=== PATIENT | female | born 2005 | race Two or more races ===

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

== ENCOUNTER 2023-04-03 20:54 | Emergency (ER) | payer OTHER ==
[2023-04-03] MEDS ORDERED: Sodium Chloride 0.9% 1,000 ML IV ONE (21:17)
[2023-04-03] MEDS ORDERED: Metoclopramide 10 MG/2 ML SDV IVPUSH ONE (21:18)
[2023-04-03 21:28] LABS: BASOPHILS PERCENT AUTO 0.1 % (0.0-1.0); EOSINOPHILS ABSOLUTE AUTO 0.1 K/mm3 (0.0-0.4); EOSINOPHILS PERCENT AUTO 0.7 % (0.0-6.0); HEMATOCRIT 36.7 % (37.0-47.0); HEMOGLOBIN 12.7 gm/dl (12.0-16.0); IMMATURE GRAN ABSOLUTE AUTO 0.07 K/mm3 (0.00-0.05); IMMATURE GRAN PERCENT AUTO 0.5 % (0.0-0.4); MEAN CORPUSCULAR HEMOGLOBIN 30.3 pg (28.0-32.0); MEAN CORPUSCULAR HGB CONC 34.6 g/dl (32.0-36.0); MEAN CORPUSCULAR VOLUME 87.6 fl (83.0-99.0); MEAN PLATELET VOLUME 8.8 fl (9.4-12.3); MONOCYTES ABSOLUTE AUTO 0.8 K/mm3 (0.0-0.8); MONOCYTES PERCENT AUTO 5.3 % (0.0-8.0); NEUTROPHILS ABSOLUTE AUTO 12.3 K/mm3 (1.8-7.7); NEUTROPHILS PERCENT AUTO 80.4 % (41.0-71.0); PLATELET COUNT,PLT 312 K/mm3 (150-400); RED BLOOD CELL COUNT 4.19 M/mm3 (4.10-5.30); WHITE BLOOD CELL COUNT,WBC 15.26 K/mm3 (3.9-11.3)
[2023-04-03] MEDS ORDERED: Pantoprazole 40 MG Tab.CR ONE (21:51)
[2023-04-03 21:52] LABS: A/G RATIO 0.8 (1-2); ALBUMIN 3.1 g/dl (3.4-5.0); ANION GAP 13.7 (5-15); BILIRUBIN TOTAL 0.2 mg/dL (0.2-1.0); CREATININE 0.6 mg/dL (0.55-1.02); EST CRCL DRUG DOSING (CG) 107.43 mL/min; POTASSIUM,K 3.7 mEq/L (3.5-5.1); PROTEIN TOTAL,TP 7.1 g/dl (6.4-8.2)
[2023-04-03] MEDS ORDERED: Acetaminophen 325 MG Tab PO ONE (22:42)
[2023-04-03 22:44] LABS: APPEARANCE,URINE CLEAR (Clear); BILIRUBIN,URINE NEGATIVE (Negative); COLOR,URINE YELLOW (Yellow); GLUCOSE,URINE NEGATIVE (Negative); KETONES,URINE 1+ (Negative); LEUKOCYTE ESTERASE,URINE TRACE (Negative); NITRITE,URINE NEGATIVE (Negative); OCCULT BLOOD,URINE NEGATIVE (Negative); PH,URINE 5.5 (5.0-8.0); PROTEIN,URINE NEGATIVE (Negative); UROBILINOGEN,URINE 0.2 (0.2-1.0)
[2023-04-03 22:53] LABS: BACTERIA,URINE MODERATE /hpf (FEW); MUCUS,URINE MODERATE /hpf (FEW); RBC,URINE 0-5 /hpf (0-5)
[2023-04-03] MEDS ORDERED: Prochlorperazine 10 MG/2 ML SDV ONE (23:36)
[2023-04-03] MEDS ORDERED: Prochlorperazine 10 MG in Sodium Chloride 0.9% 50 ML IV ONE (23:39)
[2023-04-04] MEDS ORDERED: Pantoprazole 40 MG Tab.CR PO ONE (21:18)
== END 2023-04-03 23:55 | disposition home or self-care (01) ==
LOC: JD.ED 20:54
DX: O26.891 Other specified pregnancy related conditions, first trimester (principal); R10.13 Epigastric pain; K21.9 Gastro-esophageal reflux disease without esophagitis; R11.0 Nausea; Z3A.13 13 weeks gestation of pregnancy; Z91.041 Radiographic dye allergy status; Z79.899 Other long term (current) drug therapy; Z86.16 Personal history of COVID-19
CPT/HCPCS: 36415; 80053; 81001; 85025; 87086; 96361; 96365; 96375; 99284; A9270; J0780; J2765; J3490; J7030; 99283

== ENCOUNTER 2023-04-05 23:13 | Emergency (ER) | payer OTHER ==
[2023-04-05] MEDS ORDERED: Sodium Chloride 0.9% 1,000 ML IV ONE (23:58)
[2023-04-05] MEDS ORDERED: Sodium Chloride 0.9% 10 ML Syringe FLUSH PRN (23:58)
[2023-04-05] MEDS ORDERED: Prochlorperazine 10 MG in Sodium Chloride 0.9% 50 ML IV ONE (23:58)
[2023-04-06 00:47] LABS: BASOPHILS PERCENT AUTO 0.1 % (0.0-1.0); EOSINOPHILS PERCENT AUTO 1.1 % (0.0-6.0); HEMATOCRIT 37.1 % (37.0-47.0); HEMOGLOBIN 12.8 gm/dl (12.0-16.0); IMMATURE GRAN PERCENT AUTO 0.5 % (0.0-0.4); LYMPHOCYTES ABSOLUTE AUTO 1.6 K/mm3 (1.0-4.8); LYMPHOCYTES PERCENT AUTO 15.2 % (24.0-44.0); MEAN CORPUSCULAR HEMOGLOBIN 30.3 pg (28.0-32.0); MEAN CORPUSCULAR HGB CONC 34.5 g/dl (32.0-36.0); MEAN CORPUSCULAR VOLUME 87.7 fl (83.0-99.0); MEAN PLATELET VOLUME 8.9 fl (9.4-12.3); MONOCYTES PERCENT AUTO 8.8 % (0.0-8.0); NEUTROPHILS ABSOLUTE AUTO 7.6 K/mm3 (1.8-7.7); NEUTROPHILS PERCENT AUTO 74.3 % (41.0-71.0); PLATELET COUNT,PLT 295 K/mm3 (150-400); RED BLOOD CELL COUNT 4.23 M/mm3 (4.10-5.30); WHITE BLOOD CELL COUNT,WBC 10.17 K/mm3 (3.9-11.3)
[2023-04-06 00:48] LABS: EOSINOPHILS ABSOLUTE AUTO 0.1 K/mm3 (0.0-0.4); IMMATURE GRAN ABSOLUTE AUTO 0.05 K/mm3 (0.00-0.05); MONOCYTES ABSOLUTE AUTO 0.9 K/mm3 (0.0-0.8)
[2023-04-06 01:11] LABS: A/G RATIO 0.7 (1-2); ANION GAP 17.9 (5-15); BILIRUBIN TOTAL 0.3 mg/dL (0.2-1.0); CREATININE 0.5 mg/dL (0.55-1.02); EST CRCL DRUG DOSING (CG) 128.92 mL/min; PROTEIN TOTAL,TP 7.3 g/dl (6.4-8.2)
[2023-04-06] MEDS ORDERED: Alum Hydrox/Mag Hydrox/Simeth 30 ML, Lidocaine 2% 15 ML PO ONE ×2 (01:18)
[2023-04-06] MEDS ORDERED: diphenhydrAMINE 50 MG/ML SDV IVPUSH ONE (01:28)
[2023-04-06 01:53] LABS: POTASSIUM,K 3.9 mEq/L (3.5-5.1)
== END 2023-04-06 03:36 | disposition home or self-care (01) ==
LOC: JD.ED 23:13
DX: K52.9 Noninfective gastroenteritis and colitis, unspecified (principal); R51.9 Headache, unspecified; I10 Essential (primary) hypertension; J45.909 Unspecified asthma, uncomplicated; Z86.16 Personal history of COVID-19; Z91.040 Latex allergy status; Z20.822 Contact with and (suspected) exposure to COVID-19
CPT/HCPCS: 36415; 80053; 83690; 85025; 87635; 96361; 96365; 96375; 99284; A9270; J0780; J1200; J3490; J7030; U0002

== ENCOUNTER 2023-09-11 06:24 | Inpatient (IN) | payer OTHER ==
[~2023-09-11 06:24] MED LIST: Bupivacaine 0.25% 10 ML SDV ONE
[2023-09-11] MEDS ORDERED: Sodium Chloride 0.9% 10 ML Syringe FLUSH PRN (07:28)
[2023-09-11 07:59] LABS: BASOPHILS PERCENT AUTO 0.2 % (0.0-1.0); EOSINOPHILS PERCENT AUTO 0.3 % (0.0-6.0); HEMATOCRIT 33.4 % (37.0-47.0); HEMOGLOBIN 10.5 gm/dl (12.0-16.0); IMMATURE GRAN ABSOLUTE AUTO 0.09 K/mm3 (0.00-0.05); IMMATURE GRAN PERCENT AUTO 0.9 % (0.0-0.4); LYMPHOCYTES ABSOLUTE AUTO 1.7 K/mm3 (1.0-4.8); LYMPHOCYTES PERCENT AUTO 17.3 % (24.0-44.0); MEAN CORPUSCULAR HEMOGLOBIN 24.5 pg (28.0-32.0); MEAN CORPUSCULAR HGB CONC 31.4 g/dl (32.0-36.0); MEAN PLATELET VOLUME 10.3 fl (9.4-12.3); MONOCYTES ABSOLUTE AUTO 0.6 K/mm3 (0.0-0.8); MONOCYTES PERCENT AUTO 6.1 % (0.0-8.0); NEUTROPHILS ABSOLUTE AUTO 7.2 K/mm3 (1.8-7.7); NEUTROPHILS PERCENT AUTO 75.2 % (41.0-71.0); PLATELET COUNT,PLT 315 K/mm3 (150-400); RED BLOOD CELL COUNT 4.28 M/mm3 (4.10-5.30); WHITE BLOOD CELL COUNT,WBC 9.52 K/mm3 (3.9-11.3)
[2023-09-11] MEDS: Misoprostol 25 MCG (1/4 of 100 MCG) Tab VAG ONE (08:02)
[2023-09-11 08:11] LABS: A/G RATIO 0.6 (1-2); ALANINE AMINOTRANSFERASE,ALT 21 U/L (14-59); ALBUMIN 2.5 g/dl (3.4-5.0); ALKALINE PHOSPHATASE 227 U/L (46-116); ANION GAP 19.1 (5-15); ASPARTATE AMNIOTRANSFERASE,AST 19 U/L (15-37); BILIRUBIN TOTAL 0.3 mg/dL (0.2-1.0); BLOOD UREA NITROGEN,BUN 10 mg/dL (7-18); BUN/CREATININE RATIO 16.7 (14-18); CARBON DIOXIDE,CO2 19 mEq/L (21-32); CHLORIDE,CL 103 mEq/L (98-107); CREATININE 0.6 mg/dL (0.55-1.02); ESTIMATED GFR 132 mL/min (>60); GLUCOSE RANDOM 84 mg/dL (70-99); POTASSIUM,K 4.1 mEq/L (3.5-5.1); PROTEIN TOTAL,TP 6.8 g/dl (6.4-8.2); SODIUM,NA 137 mEq/L (136-145)
[2023-09-11] MEDS ORDERED: diphenhydrAMINE 50 MG/ML SDV IVPUSH PRN (09:37)
[2023-09-11] MEDS ORDERED: fentaNYL 100 MCG/2 ML SDV EPIDUR PRN (09:37)
[2023-09-11] MEDS ORDERED: ePHEDrine 50 MG/ML SDV IVPUSH PRN (09:37)
[2023-09-11] MEDS ORDERED: Bupivacaine/fentaNYL/NS 100 ML Bag EPIDUR PRN (09:37)
[2023-09-11] MEDS: Acetaminophen 325 MG Tab PO ONE (10:29)
[2023-09-11 11:01] LABS: CREATININE,URINE RAND 99.9 mg/dL (30.0-125.0); PROTEIN CREATININE RATIO,URINE 625.6 mg/g (0-149); PROTEIN,URINE RANDOM 62.5 mg/dL (0.0-11.8)
[2023-09-11] MEDS: Misoprostol 25 MCG (1/4 of 100 MCG) Tab VAG PRN (12:00)
[2023-09-11] MEDS: Sodium Chloride 0.9% 10 ML Syringe FLUSH SCH (17:01)
[2023-09-12] MEDS: Lactated Ringers 1,000 ML IV SCH (01:45)
[2023-09-12] MEDS: Oxytocin/Lactated Ringers 30 UNIT/500 ML BAG IV SCH (02:07)
[2023-09-12] MEDS: Nalbuphine 10 MG/ML Syringe IVPUSH PRN (03:08)
[2023-09-12] MEDS: Ondansetron 4 MG/2 ML SDV IVPUSH PRN (08:50)
[2023-09-12] MEDS ORDERED: diphenhydrAMINE 50 MG/ML SDV IVPUSH PRN (12:57)
[2023-09-12] MEDS ORDERED: ePHEDrine 50 MG/ML SDV IVPUSH PRN (12:57)
[2023-09-12] MEDS: fentaNYL 100 MCG/2 ML SDV EPIDUR PRN (13:06)
[2023-09-12] MEDS: Bupivacaine/fentaNYL/NS 100 ML Bag EPIDUR PRN (13:06)
[2023-09-12] MEDS ORDERED: dexmedeTOMIDine HCl 200 MCG/2 ML SDV ONE (18:58)
[2023-09-12] MEDS: Ampicillin 2 GM in Sodium Chloride 0.9% 100 ML IV SCH (21:56)
[2023-09-12] MEDS: Acetaminophen 325 MG Tab PO ONE (21:57)
[2023-09-13] MEDS: Oxytocin/Lactated Ringers 30 UNIT/500 ML BAG IV SCH (01:02)
[2023-09-13] MEDS: Lidocaine 1% 50 ML MDV INJECT PRN (03:42)
[2023-09-13] MEDS ORDERED: Oxytocin/Lactated Ringers 30 UNIT/500 ML BAG IV SCH (04:10)
[2023-09-13] MEDS ORDERED: Benzocaine/Menthol 20%-0.5% Spray 78 GM Cannister TOP PRN (04:10)
[2023-09-13] MEDS ORDERED: Simethicone 80 MG Tab.Chew PO PRN (04:10)
[2023-09-13] MEDS ORDERED: Hydrocortisone Acetate 25 MG Supp RECTAL PRN (04:10)
[2023-09-13] MEDS: Prenatal Multivitamin with Calcium/Folic Acid/Iron Tab PO SCH (09:54)
[2023-09-13] MEDS: Docusate Sodium 100 MG Cap PO SCH (09:54)
[2023-09-13] MEDS: Acetaminophen 325 MG Tab PO PRN (09:56)
[2023-09-13] MEDS: Ibuprofen 600 MG Tab PO PRN (09:57)
[2023-09-13 14:37] LABS: HEMATOCRIT 23.1 % (37.0-47.0); MEAN CORPUSCULAR HEMOGLOBIN 24.4 pg (28.0-32.0); MEAN CORPUSCULAR HGB CONC 31.2 g/dl (32.0-36.0); MEAN CORPUSCULAR VOLUME 78.3 fl (83.0-99.0); MEAN PLATELET VOLUME 10.5 fl (9.4-12.3); NRBC ABSOLUTE 0.02 (0.00-0.02); NRBC PERCENT 0.1 % (0.0-0.2); PLATELET COUNT,PLT 299 K/mm3 (150-400); RED BLOOD CELL COUNT 2.95 M/mm3 (4.10-5.30); WHITE BLOOD CELL COUNT,WBC 19.07 K/mm3 (3.9-11.3)
[2023-09-13 14:39] LABS: HEMOGLOBIN 7.2 gm/dl (12.0-16.0)
[2023-09-14 05:50] LABS: HEMATOCRIT 20.9 % (37.0-47.0); MEAN CORPUSCULAR HEMOGLOBIN 24.3 pg (28.0-32.0); MEAN CORPUSCULAR HGB CONC 30.6 g/dl (32.0-36.0); MEAN CORPUSCULAR VOLUME 79.5 fl (83.0-99.0); MEAN PLATELET VOLUME 10.2 fl (9.4-12.3); PLATELET COUNT,PLT 267 K/mm3 (150-400); RED BLOOD CELL COUNT 2.63 M/mm3 (4.10-5.30); WHITE BLOOD CELL COUNT,WBC 14.01 K/mm3 (3.9-11.3)
[2023-09-14 06:01] LABS: HEMOGLOBIN 6.4 gm/dl (12.0-16.0)
[2023-09-14] MEDS: Witch Hazel Medicated Pads 40/Jar TOP PRN (08:02)
[2023-09-14] MEDS: Magnesium Hydroxide 400 MG/5 ML Susp 30 ML Cup PO PRN (09:15)
[2023-09-14] MEDS: Sodium Chloride 0.9% 1,000 ML IV SCH ×2 (09:15→22:20)
[2023-09-14] MEDS: Acetaminophen 325 MG Tab PO PRN (15:20)
[2023-09-14 19:11] LABS: BASOPHILS PERCENT AUTO 0.1 % (0.0-1.0); EOSINOPHILS ABSOLUTE AUTO 0.1 K/mm3 (0.0-0.4); EOSINOPHILS PERCENT AUTO 0.5 % (0.0-6.0); HEMATOCRIT 24.4 % (37.0-47.0); HEMOGLOBIN 7.7 gm/dl (12.0-16.0); IMMATURE GRAN ABSOLUTE AUTO 0.14 K/mm3 (0.00-0.05); IMMATURE GRAN PERCENT AUTO 0.8 % (0.0-0.4); LYMPHOCYTES ABSOLUTE AUTO 2.5 K/mm3 (1.0-4.8); MEAN CORPUSCULAR HEMOGLOBIN 25.2 pg (28.0-32.0); MEAN CORPUSCULAR HGB CONC 31.6 g/dl (32.0-36.0); MEAN CORPUSCULAR VOLUME 79.7 fl (83.0-99.0); MEAN PLATELET VOLUME 10.1 fl (9.4-12.3); MONOCYTES ABSOLUTE AUTO 1.1 K/mm3 (0.0-0.8); MONOCYTES PERCENT AUTO 6.7 % (0.0-8.0); NEUTROPHILS PERCENT AUTO 76.9 % (41.0-71.0); NRBC ABSOLUTE 0.03 (0.00-0.02); NRBC PERCENT 0.2 % (0.0-0.2); PLATELET COUNT,PLT 316 K/mm3 (150-400); RED BLOOD CELL COUNT 3.06 M/mm3 (4.10-5.30); WHITE BLOOD CELL COUNT,WBC 16.85 K/mm3 (3.9-11.3)
[2023-09-15 06:08] LABS: BASOPHILS PERCENT AUTO 0.3 % (0.0-1.0); EOSINOPHILS ABSOLUTE AUTO 0.1 K/mm3 (0.0-0.4); EOSINOPHILS PERCENT AUTO 0.8 % (0.0-6.0); HEMATOCRIT 26.6 % (37.0-47.0); HEMOGLOBIN 8.3 gm/dl (12.0-16.0); IMMATURE GRAN ABSOLUTE AUTO 0.22 K/mm3 (0.00-0.05); IMMATURE GRAN PERCENT AUTO 1.6 % (0.0-0.4); LYMPHOCYTES PERCENT AUTO 14.5 % (24.0-44.0); MEAN CORPUSCULAR HEMOGLOBIN 25.1 pg (28.0-32.0); MEAN CORPUSCULAR HGB CONC 31.2 g/dl (32.0-36.0); MEAN CORPUSCULAR VOLUME 80.4 fl (83.0-99.0); MEAN PLATELET VOLUME 9.9 fl (9.4-12.3); MONOCYTES ABSOLUTE AUTO 0.9 K/mm3 (0.0-0.8); MONOCYTES PERCENT AUTO 6.7 % (0.0-8.0); NEUTROPHILS ABSOLUTE AUTO 10.6 K/mm3 (1.8-7.7); NEUTROPHILS PERCENT AUTO 76.1 % (41.0-71.0); NRBC ABSOLUTE 0.03 (0.00-0.02); NRBC PERCENT 0.2 % (0.0-0.2); PLATELET COUNT,PLT 291 K/mm3 (150-400); RED BLOOD CELL COUNT 3.31 M/mm3 (4.10-5.30); WHITE BLOOD CELL COUNT,WBC 13.86 K/mm3 (3.9-11.3)
[2023-09-15] MEDS: Magnesium Citrate Solution 296 ML Bottle PO ONE (15:51)
== END 2023-09-15 16:45 | disposition home or self-care (01) | DRG 768 ==
LOC: JD.OBCHECK 06:24 → JD.OB 06:24 → JD.OBCHECK 07:28 → OBSVTOIN 09-13 01:01 → JD.OB 09-13 03:17
PROVIDERS: ADMIT Obstetrics & Gynecology; ATTEND Obstetrics & Gynecology
PROC: 10D07Z6 Extraction of Products of Conception, Vacuum, Via Natural or Artificial Opening (ICD-10-PCS; principal; 2023-09-13)
PROC: 0DQR0ZZ Repair Anal Sphincter, Open Approach (ICD-10-PCS; 2023-09-13)
PROC: 3E0P7VZ Introduction of Hormone into Female Reproductive, Via Natural or Artificial Opening (ICD-10-PCS; 2023-09-13)
PROC: 3E0R3BZ Introduction of Anesthetic Agent into Spinal Canal, Percutaneous Approach (ICD-10-PCS; 2023-09-13)
PROC: 00HU33Z Insertion of Infusion Device into Spinal Canal, Percutaneous Approach (ICD-10-PCS; 2023-09-13)
PROC: 30233N1 Transfusion of Nonautologous Red Blood Cells into Peripheral Vein, Percutaneous Approach (ICD-10-PCS; 2023-09-14)
DX: O14.04 Mild to moderate pre-eclampsia, complicating childbirth (principal); Z37.0 Single live birth; O41.1230 Chorioamnionitis, third trimester, not applicable or unspecified; D62 Acute posthemorrhagic anemia; Z3A.37 37 weeks gestation of pregnancy; Z91.040 Latex allergy status; Z86.16 Personal history of COVID-19; Z90.49 Acquired absence of other specified parts of digestive tract; O69.81X0 Labor and delivery complicated by cord around neck, without compression, not applicable or unspecified; O76 Abnormality in fetal heart rate and rhythm complicating labor and delivery; O70.21 Third degree perineal laceration during delivery, IIIa; O99.214 Obesity complicating childbirth; O99.03 Anemia complicating the puerperium
CPT/HCPCS: 36415; 36430; 51702; 59025; 59409; 80053; 82570; 84156; 85025; 85027; 86592; 86850; 86900; 86901; 86922; A9270-GY; C1726; J0290; J1580; J2001; J2300; J2405; J3010; J3490; J7030; J7120; J7999; P9016

== ENCOUNTER 2024-01-22 15:43 | Emergency (ER) | payer OTHER ==
[2024-01-22] MEDS ORDERED: Sodium Chloride 0.9% 1,000 ML IV SCH (16:30)
[2024-01-22 16:48] LABS: BASOPHILS PERCENT AUTO 0.2 % (0.0-1.0); EOSINOPHILS ABSOLUTE AUTO 0.1 K/mm3 (0.0-0.4); EOSINOPHILS PERCENT AUTO 0.5 % (0.0-6.0); HEMATOCRIT 40.9 % (37.0-47.0); HEMOGLOBIN 13.7 gm/dl (12.0-16.0); IMMATURE GRAN ABSOLUTE AUTO 0.02 K/mm3 (0.00-0.05); IMMATURE GRAN PERCENT AUTO 0.2 % (0.0-0.4); LYMPHOCYTES ABSOLUTE AUTO 2.4 K/mm3 (1.0-4.8); LYMPHOCYTES PERCENT AUTO 20.3 % (24.0-44.0); MEAN CORPUSCULAR HEMOGLOBIN 27.4 pg (28.0-32.0); MEAN CORPUSCULAR HGB CONC 33.5 g/dl (32.0-36.0); MEAN CORPUSCULAR VOLUME 81.8 fl (83.0-99.0); MONOCYTES ABSOLUTE AUTO 0.5 K/mm3 (0.0-0.8); MONOCYTES PERCENT AUTO 4.5 % (0.0-8.0); NEUTROPHILS PERCENT AUTO 74.3 % (41.0-71.0); PLATELET COUNT,PLT 365 K/mm3 (150-400); WHITE BLOOD CELL COUNT,WBC 12.03 K/mm3 (3.9-11.3)
[2024-01-22 17:21] LABS: APPEARANCE,URINE CLEAR (Clear); BILIRUBIN,URINE NEGATIVE (Negative); COLOR,URINE YELLOW (Yellow); GLUCOSE,URINE NEGATIVE (Negative); KETONES,URINE NEGATIVE (Negative); LEUKOCYTE ESTERASE,URINE 3+ (Negative); NITRITE,URINE NEGATIVE (Negative); OCCULT BLOOD,URINE NEGATIVE (Negative); PROTEIN,URINE NEGATIVE (Negative); UROBILINOGEN,URINE 0.2 (0.2-1.0)
[2024-01-22 17:50] LABS: A/G RATIO 0.8 (1-2); ALBUMIN 3.3 g/dl (3.4-5.0); ANION GAP 14.8 (5-15); BILIRUBIN TOTAL 0.2 mg/dL (0.2-1.0); BUN/CREATININE RATIO 8.8 (14-18); CALCIUM 9.3 mg/dL (8.5-10.1); CREATININE 0.8 mg/dL (0.55-1.02); EST CRCL DRUG DOSING (CG) 80.57 mL/min; POTASSIUM,K 3.8 mEq/L (3.5-5.1); PROTEIN TOTAL,TP 7.3 g/dl (6.4-8.2)
[2024-01-22 18:07] LABS: RBC,URINE 0-5 /hpf (0-5)
[2024-01-22 18:08] LABS: BACTERIA,URINE MODERATE /hpf (FEW); MUCUS,URINE RARE /hpf (FEW); WBC,URINE 20-30 /hpf (0-5)
[2024-01-22] MEDS: Cephalexin 500 MG Cap PO ONE (19:24)
== END 2024-01-22 19:28 | disposition home or self-care (01) ==
LOC: JD.ED 15:43
DX: O20.8 Other hemorrhage in early pregnancy (principal); O23.11 Infections of bladder in pregnancy, first trimester; N30.00 Acute cystitis without hematuria; Z91.040 Latex allergy status; Z79.899 Other long term (current) drug therapy; Z3A.01 Less than 8 weeks gestation of pregnancy; Z86.16 Personal history of COVID-19
CPT/HCPCS: 36415; 76817; 80053; 81001; 84702; 85025; 87086; 99284; A9270

== ENCOUNTER 2024-08-25 06:38 | Inpatient (IN) | payer OTHER ==
[~2024-08-25 06:38] MED LIST changes: +Sodium Chloride 0.9% 10 ML SDV ONE
[2024-08-25] MEDS ORDERED: Nalbuphine 10 MG/1 ML Vial IVPUSH PRN (07:49)
[2024-08-25] MEDS ORDERED: Lidocaine 1% 50 ML MDV INJECT PRN (07:49)
[2024-08-25] MEDS ORDERED: Ondansetron 4 MG/2 ML SDV IVPUSH PRN (07:49)
[2024-08-25] MEDS ORDERED: Sodium Chloride 0.9% 10 ML Syringe FLUSH PRN (07:49)
[2024-08-25] MEDS ORDERED: Oxytocin/0.9 % Sodium Chloride 30 UNIT/500 ML BAG IV SCH (08:00)
[2024-08-25 08:19] LABS: BASOPHILS PERCENT AUTO 0.2 % (0.0-1.0); EOSINOPHILS ABSOLUTE AUTO 0.1 K/mm3 (0.0-0.4); EOSINOPHILS PERCENT AUTO 0.7 % (0.0-6.0); HEMOGLOBIN 10.4 gm/dl (12.0-16.0); IMMATURE GRAN ABSOLUTE AUTO 0.09 K/mm3 (0.00-0.05); IMMATURE GRAN PERCENT AUTO 0.9 % (0.0-0.4); LYMPHOCYTES PERCENT AUTO 19.8 % (24.0-44.0); MEAN CORPUSCULAR HEMOGLOBIN 23.3 pg (28.0-32.0); MEAN CORPUSCULAR HGB CONC 30.6 g/dl (32.0-36.0); MEAN CORPUSCULAR VOLUME 76.2 fl (83.0-99.0); MEAN PLATELET VOLUME 10.5 fl (9.4-12.3); MONOCYTES ABSOLUTE AUTO 0.7 K/mm3 (0.0-0.8); MONOCYTES PERCENT AUTO 6.7 % (0.0-8.0); NEUTROPHILS ABSOLUTE AUTO 7.3 K/mm3 (1.8-7.7); NEUTROPHILS PERCENT AUTO 71.7 % (41.0-71.0); NRBC ABSOLUTE 0.02 (0.00-0.02); NRBC PERCENT 0.2 % (0.0-0.2); PLATELET COUNT,PLT 281 K/mm3 (150-400); RED BLOOD CELL COUNT 4.46 M/mm3 (4.10-5.30); WHITE BLOOD CELL COUNT,WBC 10.12 K/mm3 (3.9-11.3)
[2024-08-25] MEDS: Lactated Ringers 1,000 ML IV SCH (08:30)
[2024-08-25] MEDS: Oxytocin/0.9 % Sodium Chloride 30 UNIT/500 ML BAG IV SCH (08:31)
[2024-08-25 08:39] LABS: CREATININE,URINE RAND 129.5 mg/dL (30.0-125.0); PROTEIN CREATININE RATIO,URINE 520.5 mg/g (0-149); PROTEIN,URINE RANDOM 67.4 mg/dL (0.0-11.8)
[2024-08-25 08:44] LABS: A/G RATIO 0.6 (1-2); ALANINE AMINOTRANSFERASE,ALT 16 U/L (14-59); ALBUMIN 2.5 g/dl (3.4-5.0); ALKALINE PHOSPHATASE 227 U/L (46-116); ANION GAP 14.1 (5-15); ASPARTATE AMNIOTRANSFERASE,AST 19 U/L (15-37); BILIRUBIN TOTAL 0.2 mg/dL (0.2-1.0); BLOOD UREA NITROGEN,BUN 10 mg/dL (7-18); BUN/CREATININE RATIO 16.7 (14-18); CALCIUM 8.7 mg/dL (8.5-10.1); CARBON DIOXIDE,CO2 21 mEq/L (21-32); CHLORIDE,CL 104 mEq/L (98-107); CREATININE 0.6 mg/dL (0.55-1.02); ESTIMATED GFR 131 mL/min (>60); GLUCOSE RANDOM 80 mg/dL (70-99); POTASSIUM,K 4.1 mEq/L (3.5-5.1); PROTEIN TOTAL,TP 6.7 g/dl (6.4-8.2); SODIUM,NA 135 mEq/L (136-145)
[2024-08-25] MEDS ORDERED: ePHEDrine 50 MG/ML SDV IVPUSH PRN (10:33)
[2024-08-25] MEDS: fentaNYL 100 MCG/2 ML SDV EPIDUR PRN (10:49)
[2024-08-25] MEDS: Bupivacaine/fentaNYL/NS 100 ML Bag EPIDUR PRN (10:50)
[2024-08-25] MEDS: diphenhydrAMINE 50 MG/ML SDV IVPUSH PRN (12:05)
[2024-08-25 12:45] LABS: APPEARANCE,URINE CLEAR (Clear); BILIRUBIN,URINE NEGATIVE (Negative); COLOR,URINE YELLOW (Yellow); GLUCOSE,URINE NEGATIVE (Negative); KETONES,URINE TRACE (Negative); LEUKOCYTE ESTERASE,URINE NEGATIVE (Negative); NITRITE,URINE NEGATIVE (Negative); OCCULT BLOOD,URINE NEGATIVE (Negative); PH,URINE 6.5 (5.0-8.0); PROTEIN,URINE 1+ (Negative); UROBILINOGEN,URINE 0.2 (0.2-1.0)
[2024-08-25 12:53] LABS: BACTERIA,URINE FEW /hpf (FEW); EPITHELIAL CELLS,URINE 0-5 /hpf (0-5); MUCUS,URINE FEW /hpf (FEW); RBC,URINE 0-5 /hpf (0-5); WBC,URINE 0-5 /hpf (0-5)
[2024-08-25] MEDS: Sodium Chloride 0.9% 10 ML Syringe FLUSH SCH (13:23)
[2024-08-25] MEDS: Misoprostol 200 MCG Tab PO STA (16:09)
[2024-08-25] MEDS ORDERED: Docusate Sodium 100 MG Cap PO PRN (18:11)
[2024-08-25] MEDS: Ibuprofen 600 MG Tab PO SCH (18:30)
[2024-08-25] MEDS: Witch Hazel Medicated Pads 40/Jar TOP PRN (18:30)
[2024-08-25] MEDS: Benzocaine/Menthol 20%-0.5% Spray 78 GM Cannister TOP PRN (18:31)
[2024-08-25] MEDS: Acetaminophen 325 MG Tab PO PRN (20:19)
== END 2024-08-27 11:10 | disposition home or self-care (01) | DRG 807 ==
LOC: JD.OB 06:38 → OBSVTOIN 16:01 → JD.OB 16:02
PROVIDERS: ADMIT Obstetrics & Gynecology; ATTEND Obstetrics & Gynecology
PROC: 10D07Z6 Extraction of Products of Conception, Vacuum, Via Natural or Artificial Opening (ICD-10-PCS; principal; 2024-08-25)
PROC: 0KQM0ZZ Repair Perineum Muscle, Open Approach (ICD-10-PCS; 2024-08-25)
PROC: 10907ZC Drainage of Amniotic Fluid, Therapeutic from Products of Conception, Via Natural or Artificial Opening (ICD-10-PCS; 2024-08-25)
PROC: 3E033VJ Introduction of Other Hormone into Peripheral Vein, Percutaneous Approach (ICD-10-PCS; 2024-08-25)
PROC: 3E0R3BZ Introduction of Anesthetic Agent into Spinal Canal, Percutaneous Approach (ICD-10-PCS; 2024-08-25)
PROC: 00HU33Z Insertion of Infusion Device into Spinal Canal, Percutaneous Approach (ICD-10-PCS; 2024-08-25)
DX: O14.94 Unspecified pre-eclampsia, complicating childbirth (principal); Z37.0 Single live birth; Z3A.37 37 weeks gestation of pregnancy; O66.0 Obstructed labor due to shoulder dystocia; O70.1 Second degree perineal laceration during delivery
CPT/HCPCS: 36415; 51701; 51702; 59025; 59409; 80053; 81001; 82570; 84156; 85025; 86592; 86850; 86900; 86901; A9270-GY; C1726; J0665; J1200; J3010; J3490; J7120; J7999

== ENCOUNTER 2024-12-16 00:08 | Emergency (ER) | payer OTHER | END 2024-12-16 00:15 | disposition left against medical advice (07) | LOC: JD.ED 00:08 | DX: Z53.21 Procedure and treatment not carried out due to patient leaving prior to being seen by health care provider (principal) ==

== ENCOUNTER 2024-12-21 19:01 | Emergency (ER) | payer OTHER | END 2024-12-21 19:56 | disposition home or self-care (01) | LOC: JD.ED 19:01 | DX: M54.2 Cervicalgia (principal); Z91.040 Latex allergy status; Z86.16 Personal history of COVID-19; Z90.49 Acquired absence of other specified parts of digestive tract | CPT/HCPCS: 99283 ==